=== PATIENT | male | born 1945 | race Caucasian/White ===

== ENCOUNTER 2018-06-08 12:35 | Emergency (ER) | payer MEDICARE, OTHER ==
--- NOTE | 2018-06-08 13:13 | ER Document Report ---
ED Medical Screen (RME) - General Chief Complaint: Cough Stated Complaint: COUGH, CONGESTION Time Seen by Provider: 06/08/18 13:10 Primary Care Provider: TERA CARRINGTON MD [Primary Care Provider] - Follow up as needed Mode of Arrival: Ambulatory Information source: Patient, Relative, [facility] Records Notes: 72-year-old male with hypothyroidism presents with hemoptysis. Patient reports 2 months of a persistent cough. He states this morning he began coughing up blood. Denies prior similar symptoms, PE, DVT. Did recently return from a cruise to [place]. Patient denies shortness of breath. I have greeted and performed a rapid initial assessment of this patient. A comprehensive ED assessment and evaluation of the patient, analysis of test results and completion of medical decision making process we will be contacted by additional ED providers. PHYSICAL EXAMINATION: Vital signs reviewed GENERAL: Well-appearing, well-nourished and in no acute distress. LUNGS: No respiratory distress. Patient coughing up blood-tinged sputum Musculoskeletal: Normal range of motion NEUROLOGICAL: Normal speech, normal gait. PSYCH: Normal mood, normal affect. SKIN: Warm, Dry, normal turgor, no rashes or lesions noted. - HPI Onset: This morning Onset/Duration: Sudden Quality of pain: No pain Associated Symptoms: Cough (nonproductive). denies: Shortness of breath Exacerbated by: Denies Relieved by: Denies Similar symptoms previously: No Recently seen / treated by doctor: No - Related Data Smoking: Cigarettes Frequency of alcohol use: None Drug Abuse: None Allergies/Adverse Reactions: No Known Allergies Allergy (Unverified 06/08/18 12:36) Past Medical History Renal/ Medical History: Denies: Hx Peritoneal Dialysis Physical Exam - Vital signs Vitals: Temp Pulse Resp BP Pulse Ox 98.3 F 82 16 139/88 H 98 06/08/18 12:43 06/08/18 12:43 06/08/18 12:43 06/08/18 12:43 06/08/18 12:43 Course - Vital Signs Vital signs: Temp Pulse Resp BP Pulse Ox 98.3 F 82 16 139/88 H 98 06/08/18 12:43 06/08/18 12:43 06/08/18 12:43 06/08/18 12:43 06/08/18 12:43 Doctor's Discharge - Discharge Referrals: TERA CARRINGTON MD [Primary Care Provider] - Follow up as needed
[2018-06-08 14:00] LABS: ABSOLUTE BASOPHILS # (AUTO) 0.1 10^3/uL (0.0-0.2); ABSOLUTE LYMPHOCYTES (AUTO) 2.7 10^3/uL (0.5-4.7); ABSOLUTE MONOCYTES (AUTO) 0.5 10^3/uL (0.1-1.4); BASOPHILS % (AUTO) 0.6 % (0-2); EOSINOPHILS % (AUTO) 0.5 % (0-6); HEMATOCRIT 44.8 % (37.9-51.0); HEMOGLOBIN 15.8 g/dL (13.5-17.0); LYMPHOCYTES % (AUTO) 29.2 % (13-45); MEAN CORPUSCULAR HEMOGLOBIN 32.8 pg (27.0-33.4); MEAN CORPUSCULAR HGB CONC 35.2 g/dL (32.0-36.0); MEAN CORPUSCULAR VOLUME 93 fl (80-97); MONOCYTES % (AUTO) 5.1 % (3-13); PLATELET COUNT 294 10^3/uL (150-450); RED BLOOD COUNT 4.81 10^6/uL (4.35-5.55); RED CELL DISTRIBUTION WIDTH 14.3 % (11.5-14.0); SEGMENTED NEUTROPHILS % (AUTO) 64.6 % (42-78); TOTAL CELLS COUNTED % (AUTO) 100 %; WHITE BLOOD COUNT 9.3 10^3/uL (4.0-10.5)
[2018-06-08 14:06] LABS: INTERNATIONAL RATION (INR) 0.91; PROTHROMBIN TIME 12.8 SEC (11.4-15.4)
[2018-06-08 14:07] LABS: PARTIAL THROMBOPLASTIN TIME 30.8 SEC (23.5-35.8)
[2018-06-08 14:17] LABS: ALANINE AMINOTRANSFERASE 33 U/L (21-72); ALBUMIN 4.5 g/dL (3.5-5.0); ALKALINE PHOSPHATASE 69 U/L (38-126); ANION GAP 7 (5-19); ASPARTATE AMINO TRANSFERASE 22 U/L (17-59); BILIRUBIN,DIRECT 0.2 mg/dL (0.0-0.4); BILIRUBIN,TOTAL 0.4 mg/dL (0.2-1.3); BLOOD UREA NITROGEN 18 mg/dL (7-20); CALCIUM 9.6 mg/dL (8.4-10.2); CARBON DIOXIDE 30 mmol/L (22-30); CHLORIDE 106 mmol/L (98-107); GLUCOSE 106 mg/dL (75-110); POTASSIUM 4.6 mmol/L (3.6-5.0); SODIUM 142.5 mmol/L (137-145); TOTAL PROTEIN 7.2 g/dL (6.3-8.2)
--- NOTE | 2018-06-08 14:18 | RADIOLOGY REPORT (SQ) ---
EXAM DESCRIPTION: CHEST 2 VIEWS COMPLETED DATE/TIME: 06/08/2018 2:00 pm REASON FOR STUDY: Coughing up blood COMPARISON: None. EXAM PARAMETERS: NUMBER OF VIEWS: two views TECHNIQUE: Digital Frontal and Lateral radiographic views of the chest acquired. RADIATION DOSE: NA LIMITATIONS: none FINDINGS: LUNGS AND PLEURA: Airspace opacity noted at the left lower lobe. No pleural effusion or p neumothorax. MEDIASTINUM AND HILAR STRUCTURES: No masses or contour abnormalities. HEART AND VASCULAR STRUCTURES: Heart normal size. No evidence for failure. BONES: No acute findings. HARDWARE: None in the chest. IMPRESSION: Airspace opacity at the left lower lobe, may be secondary to pneumonia or mass. CT thor ax can help in further evaluation. TECHNICAL DOCUMENTATION: JOB ID: [id number] [place]-64 2010 [employer]- All Rights Reserved Reading location - IP/workstation name: [email or web address]
[2018-06-08] MEDS ORDERED: HYDROCODONE BIT/HOMATROPINE SYRUP 5 ML UDCUP PO PRN (15:59)
--- NOTE | 2018-06-08 16:00 | ER Document Report ---
ED General - General Chief Complaint: Cough Stated Complaint: COUGH, CONGESTION Time Seen by Provider: 06/08/18 13:10 Primary Care Provider: TERA CARRINGTON MD [EMERITUS] - Follow up as needed Mode of Arrival: Ambulatory Information source: Patient Notes: Patient is a 72-year-old male who is a smoker, however no history of COPD who presents to the ER today for 2 months of coughing, 1 week of it getting worse with now coughing up blood that started this morning. Patient states the blood is streaked in his sputum, he did bring a sample with him today. He admits to some occasional chills over the last 2 days but no fever that he knows of, body aches, shortness of breath or wheezing. He was on a cruise recently to [place]. Patient is not on any blood thinners. - Related Data Allergies/Adverse Reactions: No Known Allergies Allergy (Unverified 06/08/18 12:36) Past Medical History - General Information source: Patient, Relative, [facility] Records - Social History Smoking Status: Current Every Day Smoker Frequency of alcohol use: None Drug Abuse: None Family History: Reviewed & Not Pertinent Patient has suicidal ideation: No Patient has homicidal ideation: No Renal/ Medical History: Denies: Hx Peritoneal Dialysis Review of Systems - Review of Systems Constitutional: See HPI EENT: No symptoms reported Cardiovascular: No symptoms reported Respiratory: See HPI Gastrointestinal: No symptoms reported Genitourinary: No symptoms reported Male Genitourinary: No symptoms reported Musculoskeletal: No symptoms reported Skin: No symptoms reported Hematologic/Lymphatic: No symptoms reported Neurological/Psychological: No symptoms reported Physical Exam - Vital signs Vitals: Temp Pulse Resp BP Pulse Ox 98.3 F 82 16 139/88 H 98 06/08/18 12:43 06/08/18 12:43 06/08/18 12:43 06/08/18 12:43 06/08/18 12:43 - Notes Notes: PHYSICAL EXAMINATION: GENERAL: Well-appearing and in no acute distress. HEAD: Atraumatic, normocephalic. EYES: Pupils equal round and reactive to light, extraocular movements intact, sclera anicteric, conjunctiva are normal. ENT: Airway patent, ear canals without erythema or foreign body, TMs pearly brady with good bony landmarks, nares patent, oropharynx clear without exudates. Moist mucous membranes. NECK: Normal range of motion, supple without lymphadenopathy LUNGS: Cough, otherwise CTAB and equal. No wheezes rales or rhonchi. HEART: Regular rate and rhythm without murmurs ABDOMEN: Soft, no tenderness. No guarding, no rebound BACK: no vertebral tenderness, normal ROM GI/: no CVA tenderness EXTREMITIES: Normal range of motion, no pitting edema. No cyanosis. NEUROLOGICAL: Cranial nerves grossly intact. Normal sensory/motor exams. PSYCH: Normal mood, normal affect. SKIN: Warm, Dry, normal turgor, no rashes or lesions noted Course - Re-evaluation Re-evalutation: 06/08/18 19:02 Lab work is unremarkable today, sputum culture is pending, chest x-ray shows possible pneumonia/possible mass, due to this reading CT of the chest was performed to rule out mass and it did report that this was a pseudomass of fluid in the fissure. I do suspect pneumonia with recent worsening of symptoms, will start on Augmentin, advised to take Culturelle for possible diarrhea associated with Augmentin and will give some cough syrup, he is not wheezing today, is not had any shortness of breath. - Vital Signs Vital signs: Temp Pulse Resp BP Pulse Ox 97.4 F 64 16 135/84 H 97 06/08/18 17:05 06/08/18 17:05 06/08/18 17:05 06/08/18 17:05 06/08/18 17:05 - Laboratory Result Diagrams: 06/08/18 13:47 06/08/18 13:47 Laboratory results interpreted by me: 06/08/18 13:47 RDW 14.3 H Discharge - Discharge Clinical Impression: Hemoptysis Pneumonia Qualifiers: Pneumonia type: due to unspecified organism Laterality: left Lung location: unspecified part of lung Qualified Code(s): J18.9 - Pneumonia, unspecified organism Condition: Stable Disposition: HOME, SELF-CARE Additional Instructions: Return immediately for any new or worsening symptoms. Follow up with primary care provider, call tomorrow to make followup appointment. Prescriptions: Hydrocodone Bit/Homatropine [Hycodan Syrup 5-1.5 mg/5 ml Ud Cup] 5 ml PO Q4HP PRN #120 ml PRN Reason: Amox Tr/Potassium Clavulanate [Augmentin 875-125 Tablet] 1 tab PO BID 10 Days tablet Referrals: TERA CARRINGTON MD [EMERITUS] - Follow up as needed
[2018-06-08] MEDS ORDERED: HYDROCODONE BIT/HOMATROPINE 5-1.5 MG TABLET PO PRN (16:17)
--- NOTE | 2018-06-08 16:39 | RADIOLOGY REPORT (SQ) ---
EXAM DESCRIPTION: CT CHEST WITHOUT COMPLETED DATE/TIME: 06/08/2018 4:16 pm REASON FOR STUDY: hemoptysis after months of cough, mass r/o? COMPARISON: None. TECHNIQUE: CT scan performed of the chest without intravenous contrast. Images reviewed with lung, soft tissue and bone windows. Reconstructed coronal and sagittal MPR images reviewed. All images st ored on PACS. All CT scanners at this facility use dose modulation, iterative reconstruction, and/or weight based d osing when appropriate to reduce radiation dose to as low as reasonably achievable (ALARA). [facility]: Dose Right [facility]: CareDose [facility]: Dose Right [facility]: Teradose 4D [facility]: Smart [employer] RADIATION DOSE: CT Rad equipment meets quality standard of care and radiation dose reduction techniq ues were employed. CTDIvol: 11.7 mGy. DLP: 434 mGy-cm. mGy. LIMITATIONS: No technical limitations. FINDINGS: LUNGS AND PLEURA: Well-circumscribed oval fluid density measuring 2.2 x 5.2 cm and 6 HU al alicia the left major fissure. No infiltrate. No effusions. HILAR AND MEDIASTINAL STRUCTURES: No identified masses or abnormal nodes. No obvious aneurysm. HEART AND VASCULAR STRUCTURES: No aneurysm. No pericardial effusion. UPPER ABDOMEN: Cholelithiasis. 2.5 cm left adrenal nodule measuring -4 HU. THYROID AND OTHER SOFT TISSUES: No masses. No adenopathy. BONES: No significant finding. HARDWARE: None in the chest. OTHER: No other significant findings. IMPRESSION: 1. Pseudo mass left lung due to fluid in the fissure. Follow-up is recommended to document resolutio n. 2. Incidental left adrenal nodule consistent with an adenoma. TECHNICAL DOCUMENTATION: JOB ID: [id number] Quality ID # [id number]: Final reports with documentation of one or more dose reduction techniques (e.g., Au tomated exposure control, adjustment of the mA and/or kV according to patient size, use of iterative reconstruction technique) 2010 [employer]- All Rights Reserved Reading location - IP/workstation name: [email or web address]
[2018-06-08 17:12] VITALS: BP 135/84
--- NOTE | 2018-06-08 22:15 | EKG REPORT ---
SEVERITY:- BORDERLINE ECG - SINUS RHYTHM PROBABLE LEFT ATRIAL ABNORMALITY : Confirmed by: Roula Dee MD 08-Jun-2018 22:14:35
== END 2018-06-08 17:12 | disposition home or self-care (01) ==
LOC: ER 12:35
DX: J18.9 Pneumonia, unspecified organism (principal); R04.2 Hemoptysis; F17.200 Nicotine dependence, unspecified, uncomplicated; R68.83 Chills (without fever)
CPT/HCPCS: 93005; 99284; 36415; 87070; 87205; 85025; 85610; 85730; 80053; 71046; 71250; 93010; A9270

== ENCOUNTER → 2019-07-23 | Outpatient (CLI) | payer MEDICARE, OTHER ==
--- NOTE | 2019-07-23 11:21 | RADIOLOGY REPORT (SQ) ---
EXAM DESCRIPTION: CT CHEST WITHOUT IMAGES COMPLETED DATE/TIME: 07/23/2019 10:28 am REASON FOR STUDY: R91.8 OTHER NONSPECIFIC ABNORMAL FINDING OF LUNG FIELD R91.8 OTHER NONSPECIFIC AB NORMAL FINDING OF LUNG FIELD COMPARISON: 06/08/2018 TECHNIQUE: CT scan performed of the chest without intravenous contrast. Images reviewed with lung, soft tissue and bone windows. Reconstructed coronal and sagittal MPR images reviewed. All images st ored on PACS. All CT scanners at this facility use dose modulation, iterative reconstruction, and/or weight based d osing when appropriate to reduce radiation dose to as low as reasonably achievable (ALARA). [facility]: Dose Right [facility]: CareDose [facility]: Dose Right [facility]: Teradose 4D [facility]: [email or web address] RADIATION DOSE: CT Rad equipment meets quality standard of care and radiation dose reduction techniq ues were employed. CTDIvol: 12.6 mGy. DLP: 554 mGy-cm. mGy. LIMITATIONS: No technical limitations. FINDINGS: LUNGS AND PLEURA: There is mild interval decrease in size of the fluid density opacity wit h along the left major fissure measuring 4.1 x 1.7 cm (series 2, image 35), previously 4.6 x 1.9 cm. Again, the majority of this demonstrates low internal density with average Hounsfield units of 5. T here is a ill-defined component along the posterolateral aspect with small calcification and increase d internal density (Hounsfield units 28) (series 4, image 65). No other discrete masses. No additio nal pleural effusion or pneumothorax. Punctate calcified granuloma within the right upper lobe. HILAR AND MEDIASTINAL STRUCTURES: Stable 9 mm node within the aortopulmonary window (series 2, image 21) no discrete adenopathy. HEART AND VASCULAR STRUCTURES: Mild stable dilation of the thoracic aorta measuring up to 3.8 Cm. No rmal heart size. No significant coronary atherosclerosis. No pericardial effusion. UPPER ABDOMEN: Multiple calcified gallstones. Unchanged low-density left adrenal adenoma measuring 2 2 mm. THYROID AND OTHER SOFT TISSUES: No masses. No adenopathy. BONES: No acute bony abnormality. No suspicious osseous lesions. HARDWARE: None in the chest. OTHER: None. IMPRESSION: 1. Persistent predominantly fluid density lesion within the left major fissure suggesti ve of a pseudo tumor. However, there is an ill-defined component along the posterolateral aspect wit h soft tissue density which raises suspicion for an underlying lesion. PET-CT should be considered f or further characterization. Stable 9 mm aortopulmonary node. No discrete adenopathy. 2. Stable mild dilation of the ascending aorta measuring up to 3.8 cm. Stable incidental left adren al adenoma. TECHNICAL DOCUMENTATION: JOB ID: [id number] Quality ID # [id number]: Final reports with documentation of one or more dose reduction techniques (e.g., Au tomated exposure control, adjustment of the mA and/or kV according to patient size, use of iterative reconstruction technique) 2010 [employer]- All Rights Reserved Reading location - IP/workstation name: [email or web address]
== END ==
LOC: RAD 10:17
PROVIDERS: ATTEND Internal Medicine
DX: R91.8 Other nonspecific abnormal finding of lung field (principal); D35.02 Benign neoplasm of left adrenal gland; K80.80 Other cholelithiasis without obstruction
CPT/HCPCS: 71250